=== PATIENT | male | born 1970 | race Caucasian/White ===

== ENCOUNTER 2019-04-03 11:49 | Emergency (ER) | payer SELFPAY ==
[~2019-04-03] VITALS: Ht 182.9 cm; Wt 100.0 kg
[2019-04-03] MEDS ORDERED: ZIPRASIDONE 20 MG INJ IM PRN (12:00)
[2019-04-03] MEDS ORDERED: KETAMINE 100 MG/ML, 5ML IM PRN (12:00)
[2019-04-03] MEDS ORDERED: KETAMINE 10 MG/ML, 20ML ONE (12:02)
[2019-04-03] MEDS ORDERED: ZIPRASIDONE 20 MG INJ IM ONE (12:02)
--- NOTE | 2019-04-03 12:15 | NUR ---
PT PERMITED THIS RN TO MEDICATE PT NOTED ON JUN. PT AGIATED AND NOT WANTING TO STAY, VULGAR. PT HAD COME INTO MD AREA, WOBBLY GAIT. PT TO HAV E A SITTER.
--- NOTE | 2019-04-03 12:19 | NUR ---
SITTER IN ROOM WITH PT
[2019-04-03] MEDS ORDERED: PLEASE ENTER ALLERGIES MC SCH (12:30)
[2019-04-03] MEDS ORDERED: PLEASE ENTER HEIGHT AND WEIGHT MC SCH (12:30)
--- NOTE | 2019-04-03 12:45 | NUR ---
PT SLEEPING WITH OXYGEN SATURATION DROPPING TO 70 PERCENT ON ROOM AIR. PLACED ON OXY MASK 6L WITH OXYGEN SATURATION NOW 100 PERCENT. WILL CONTINUE TO MONITOR
--- NOTE | 2019-04-03 13:20 | NUR ---
CONTINUES TO SLEEP. CONTINUE TO MONITOR INCLUDING CO2 INDICATOR
--- NOTE | 2019-04-03 16:45 | NUR ---
SLEEPING, CONTINUE TO MONITOR
--- NOTE | 2019-04-03 17:53 | NUR ---
PT AWAKE AND NOT RECALLING WHAT HAPPENED. PT ABLE TO WALK A SHORT DISTANCE WITHOUT ASSISTANCE. PT WANTS TO GO. AWARE. AWAITING DISCHARGE PAPERS.
--- NOTE | 2019-04-03 18:18 | NUR ---
PT REQUESTING MORE TIME TO SOBER UP. PT HAS NYSTAGMUS WHEN ROUSED. SPEAKS CLEARLY BUT BACK TO SLEEP.
--- NOTE | 2019-04-03 18:52 | NUR ---
REPORT TO JUDAH WELCH. PT SLEEPING.
--- NOTE | 2019-04-03 19:17 | NUR ---
REPORT FROM YURI CARRANZA. PT RECLINED IN BED, AWAKENS EASILY TO NAME. NAD NOTED AT THIS TIME. PT PLEASANT WITH STAFF. RECHECKING VS TO PURSUE DC.
[2019-04-03 19:18] VITALS: BP 120/82
== END 2019-04-03 19:56 ==
LOC: EDBD 16:17 → ED 16:17
DX: J15.9 Unspecified bacterial pneumonia (principal)
CPT/HCPCS: 96372; 99283; J3486